=== PATIENT | female | born 1945 | race Caucasian/White ===

== ENCOUNTER 2017-10-28 08:46 | Inpatient (IN) ==
[2017-10-28] MEDS ORDERED: MIDAZOLAM 2 MG/2 ML VIAL ONE (09:10)
[2017-10-28] MEDS ORDERED: LIDOCAINE 1% 20 ML VIAL ONE (09:11)
[2017-10-28] MEDS ORDERED: fentaNYL 100 MCG/2 ML VIAL ONE (09:11)
[2017-10-28 09:12] LABS: Basophils # 0.1 10*3/uL (0.0-0.2); Basophils % 0.3 % (0.0-0.8); Eosinophils % 0.1 % (0.00-10.9); Hematocrit 33.5 VOL% (35.7-47.0); Hemoglobin 12.1 GM/DL (12.0-16.0); Immature Granulocytes % 1.1 %; Immature Granulocytes Absolute 0.22 #; Mean Corpuscular HGB Conc 36.1 GM/DL (32-36); Mean Corpuscular Hemoglobin 31 PG (27-34); Mean Corpuscular Volume 85.5 FL (87-102); Mean Platelet Volume 10.2 FL (9.6-12.0); Monocytes # 0.7 10*3/uL (0.11-0.8); Monocytes % 3.7 % (1.7-12.7); Neutrophils # 17.7 10*3/uL (1.4-7.4); Neutrophils % 89.8 % (38.7-73.9); Platelet Count 213 T/CUMM (130-400); Red Blood Count 3.92 MC/CUMM (3.8-5.5); Red Cell Distribution Width 15.2 % (9.3-17.3); White Blood Count 19.6 T/CUMM (4-12)
[2017-10-28] MEDS ORDERED: ASPIRIN 325 MG TABLET ONE (09:16)
[2017-10-28] MEDS ORDERED: ASPIRIN 325 MG TABLET PO STA (09:26)
[2017-10-28] MEDS ORDERED: LEVOFLOXACIN INJ 500 MG in PREMIX 1 EACH IV STA (09:31)
[2017-10-28 09:34] LABS: Alanine Aminotransferase 15 U/L (13-56); Albumin 3.1 G/DL (3.4-5.0); Alkaline Phosphatase 46 U/L (45-117); Aspartate Amino Transferase 16 U/L (0-37); Blood Urea Nitrogen 22 MG/DL (7-18); Glucose 150 MG/DL (74-106); Osmolality,Calculated 275.1 MOS/KG (273-304); Sodium 135 MMOL/L (136-145); Total Protein 6.9 G/DL (6.4-8.3); Troponin I Only < 0.015 NG/ML (0.00-0.045)
[2017-10-28 09:35] LABS: Apearance,Urine CLEAR (Clear); Bilirubin,Urine Negative (Negative); Blood, Urine Small mg/dL (Negative); Glucose,Urine (UA) Negative (Negative); Ketones,Urine Negative (Negative); Mucus,Urine Occasional /LPF (Occasional); Nitrite,Urine Negative (Negative); Protein,Urine Negative; RBC,Urine <1 /HPF (0-4); Squamous Epithelial Cell,Urine Occasional /HPF (0-10); Urine Color Yellow (Yellow); Urine Specific Gravity 1.012 (1.001-1.035); Urine Urobilinogen < 2.0 EU/DL (0.2-1.0); WBC,Urine 1 /HPF (0-6)
[2017-10-28] MEDS ORDERED: ONDANSETRON 4 MG/2 ML VIAL IV PRN ×2 (09:53→12:58)
[2017-10-28] MEDS ORDERED: GLUCAGON 1 MG VIAL IM PRN (09:53)
[2017-10-28] MEDS ORDERED: ACETAMINOPHEN 325 MG TABLET PO PRN (09:53)
[2017-10-28] MEDS ORDERED: DEXTROSE 50% 25 GM/50 ML VIAL IV PRN (09:53)
[2017-10-28] MEDS: SODIUM CHLORIDE 0.9% 1,000 ML IV SCH (10:00)
[2017-10-28 10:07] LABS: Lactic Acid 3.1 MMOL/L (0.4-2.0)
[2017-10-28] MEDS ORDERED: SODIUM CHLORIDE 0.9% 1,900 ML IV ONE (10:22)
[2017-10-28] MEDS ORDERED: ALBUTEROL/IPRATROPIUM 3 ML NEB RESP TX PRN (12:33)
[2017-10-28] MEDS ORDERED: POTASSIUM CHLORIDE RIDER 10 MEQ in PREMIX 1 EACH IV ONE (12:41)
[2017-10-28] MEDS ORDERED: cefTRIAXone 1,000 MG VIAL IM ONE (12:45)
[2017-10-28] MEDS ORDERED: cefTRIAXone 1,000 MG in SYRINGE 1 EACH IV ONE (13:02)
[2017-10-28] MEDS ORDERED: DOXYLAMINE SUCCINATE 25 MG PO PRN (13:15)
[2017-10-28] MEDS ORDERED: LOPERAMIDE 2 MG CAPSULE PO PRN (13:15)
[2017-10-28] MEDS: INSULIN REGULAR 100 UNIT/ML SUBCUT SCH ×3 (13:17→21:29)
[2017-10-28] MEDS: POTASSIUM CHLORIDE 20 MEQ TABLET PO SCH (13:20)
[2017-10-28] MEDS ORDERED: ENOXAPARIN 30 MG/0.3 ML SYRINGE SUBCUT SCH (21:00)
[2017-10-28] MEDS: CITALOPRAM 20 MG TABLET PO SCH (21:26)
[2017-10-28] MEDS: DOCUSATE SODIUM 100 MG CAPSULE PO SCH (21:29)
[2017-10-29] MEDS: SODIUM CHLORIDE 0.9% 1,000 ML IV SCH ×2 (03:06→12:48)
[2017-10-29 06:28] LABS: Basophils % 0.2 % (0.0-0.8); Eosinophils % 0.1 % (0.00-10.9); Hematocrit 28.2 VOL% (35.7-47.0); Immature Granulocytes % 4.8 %; Immature Granulocytes Absolute 0.79 #; Lymphocytes # 1.1 10*3/uL (1.4-4.0); Lymphocytes % 6.6 % (21.3-54.2); Mean Corpuscular HGB Conc 35.8 GM/DL (32-36); Mean Corpuscular Hemoglobin 31 PG (27-34); Mean Corpuscular Volume 86.2 FL (87-102); Mean Platelet Volume 10.9 FL (9.6-12.0); Monocytes # 0.5 10*3/uL (0.11-0.8); Monocytes % 3.3 % (1.7-12.7); Platelet Count 174 T/CUMM (130-400); Red Blood Count 3.27 MC/CUMM (3.8-5.5); Red Cell Distribution Width 15.3 % (9.3-17.3); White Blood Count 16.4 T/CUMM (4-12)
[2017-10-29 06:51] LABS: Calcium 7.7 MG/DL (8.5-10.1); Hemoglobin 10.1 GM/DL (12.0-16.0); Potassium 2.9 MMOL/L (3.5-5.1)
[2017-10-29 07:08] LABS: Band Neutrophils 9 % (0-10); Lymphocytes 4 % (20-55); Platelet Estimate Normal; Segmented Neutrophils 85 % (50-85); Total Cells Counted 100
[2017-10-29] MEDS: LEVOTHYROXINE 125 MCG TABLET PO SCH (07:11)
[2017-10-29] MEDS: INSULIN REGULAR 100 UNIT/ML SUBCUT SCH ×5 (08:44→20:45)
[2017-10-29] MEDS: POTASSIUM CHLORIDE 20 MEQ TABLET PO SCH (08:46)
[2017-10-29] MEDS: MAGNESIUM CHLORIDE 64 MG TABLET PO SCH (08:46)
[2017-10-29] MEDS: OMEGA 3 ACID ETHYL ESTERS 1 GM CAPSULE PO SCH (08:46)
[2017-10-29] MEDS: GLIMEPIRIDE 2 MG TABLET PO SCH (08:47)
[2017-10-29] MEDS: PANTOPRAZOLE 40 MG TABLET PO SCH (08:47)
[2017-10-29] MEDS: ASPIRIN EC 81 MG TABLET PO SCH (08:47)
[2017-10-29] MEDS: MONTELUKAST 10 MG TABLET PO SCH (08:48)
[2017-10-29] MEDS: TRIAMTERENE/HCTZ 37.5-25 MG TABLET PO SCH (08:59)
[2017-10-29] MEDS ORDERED: VILANTEROL INH SCH (09:00)
[2017-10-29] MEDS ORDERED: amLODIPine 10 MG TABLET PO SCH (09:00)
[2017-10-29] MEDS ORDERED: NICOTINE 14 MG/24 HR PATCH TRANSDERM SCH (09:00)
[2017-10-29] MEDS ORDERED: OLMESARTAN 20 MG TABLET PO SCH (09:00)
[2017-10-29] MEDS ORDERED: [UNRECOGNIZED DRUG - OTHER] INH SCH (09:00)
[2017-10-29] MEDS: DOCUSATE SODIUM 100 MG CAPSULE PO SCH ×2 (09:05→20:45)
[2017-10-29] MEDS: POTASSIUM CHLORIDE RIDER 10 MEQ in PREMIX 1 EACH IV SCH ×2 (09:05→12:52)
[2017-10-29] MEDS: ALBUTEROL/IPRATROPIUM 3 ML NEB RESP TX SCH ×4 (10:49→23:40)
[2017-10-29] MEDS: LEVOFLOXACIN INJ 750 MG in PREMIX 1 EACH IV SCH (12:37)
[2017-10-29] MEDS ORDERED: amLODIPine 5 MG TABLET PO SCH (13:49)
[2017-10-29] MEDS: CLINDAMYCIN INJ 300 MG in PREMIX 1 EACH IV SCH ×2 (15:11→23:04)
[2017-10-29] MEDS: CITALOPRAM 20 MG TABLET PO SCH (20:44)
[2017-10-29] MEDS: ENOXAPARIN 40 MG/0.4 ML SYRINGE SUBCUT SCH (20:45)
[2017-10-30] MEDS: SODIUM CHLORIDE 0.9% 1,000 ML IV SCH ×5 (00:26→23:33)
[2017-10-30] MEDS: ALBUTEROL/IPRATROPIUM 3 ML NEB RESP TX SCH ×4 (03:03→15:53)
[2017-10-30 05:23] LABS: Basophils % 0.2 % (0.0-0.8); Eosinophils # 0.1 10*3/uL (0.0-0.87); Eosinophils % 1.2 % (0.00-10.9); Hemoglobin 9.1 GM/DL (12.0-16.0); Mean Corpuscular Hemoglobin 31 PG (27-34); Mean Platelet Volume 11.1 FL (9.6-12.0); Monocytes # 0.3 10*3/uL (0.11-0.8); Neutrophils # 8.3 10*3/uL (1.4-7.4); Neutrophils % 84.6 % (38.7-73.9); Platelet Count 143 T/CUMM (130-400); Red Blood Count 2.92 MC/CUMM (3.8-5.5); White Blood Count 9.8 T/CUMM (4-12)
[2017-10-30 05:25] LABS: Calcium 7.8 MG/DL (8.5-10.1); Potassium 3.1 MMOL/L (3.5-5.1)
[2017-10-30] MEDS: CLINDAMYCIN INJ 300 MG in PREMIX 1 EACH IV SCH ×3 (06:29→23:21)
[2017-10-30] MEDS: LEVOTHYROXINE 125 MCG TABLET PO SCH (06:30)
[2017-10-30] MEDS ORDERED: MAGNESIUM SULF RIDER 4 GM in PREMIX 1 EACH IV PRN (06:37)
[2017-10-30] MEDS: POTASSIUM CHLORIDE 20 MEQ TABLET PO PRN ×3 (06:59→12:33)
[2017-10-30] MEDS: MAGNESIUM SULF RIDER 2 GM in PREMIX 1 EACH IV PRN (06:59)
[2017-10-30] MEDS: MONTELUKAST 10 MG TABLET PO SCH (08:48)
[2017-10-30] MEDS: OMEGA 3 ACID ETHYL ESTERS 1 GM CAPSULE PO SCH (08:48)
[2017-10-30] MEDS: TRIAMTERENE/HCTZ 37.5-25 MG TABLET PO SCH (08:49)
[2017-10-30] MEDS: PANTOPRAZOLE 40 MG TABLET PO SCH (08:49)
[2017-10-30] MEDS: GLIMEPIRIDE 2 MG TABLET PO SCH ×3 (08:49→21:22)
[2017-10-30] MEDS: ASPIRIN EC 81 MG TABLET PO SCH (08:50)
[2017-10-30] MEDS: DOCUSATE SODIUM 100 MG CAPSULE PO SCH ×2 (08:50→22:14)
[2017-10-30] MEDS: POTASSIUM CHLORIDE 20 MEQ TABLET PO SCH (08:50)
[2017-10-30] MEDS: MAGNESIUM CHLORIDE 64 MG TABLET PO SCH (08:50)
[2017-10-30] MEDS: INSULIN REGULAR 100 UNIT/ML SUBCUT SCH ×4 (08:58→22:14)
[2017-10-30] MEDS: LEVOFLOXACIN INJ 750 MG in PREMIX 1 EACH IV SCH (10:35)
[2017-10-30] MEDS ORDERED: ALBUTEROL 2.5 MG/3 ML NEB RESP TX PRN (15:18)
[2017-10-30] MEDS: LEVALBUTEROL 1.25 MG/3 ML NEB RESP TX PRN ×3 (15:48→23:07)
[2017-10-30] MEDS: CITALOPRAM 20 MG TABLET PO SCH (21:20)
[2017-10-30] MEDS: OLMESARTAN 20 MG TABLET PO SCH (21:24)
[2017-10-30] MEDS: TEMAZEPAM 15 MG CAPSULE PO PRN (21:27)
[2017-10-30] MEDS: ENOXAPARIN 40 MG/0.4 ML SYRINGE SUBCUT SCH (22:15)
[2017-10-31] MEDS: LEVALBUTEROL 1.25 MG/3 ML NEB RESP TX PRN ×4 (02:56→21:12)
[2017-10-31 05:04] LABS: Calcium 8.3 MG/DL (8.5-10.1); Osmolality,Calculated 273.7 MOS/KG (273-304); Potassium 4.1 MMOL/L (3.5-5.1)
[2017-10-31] MEDS: LEVOTHYROXINE 125 MCG TABLET PO SCH (06:15)
[2017-10-31] MEDS: INSULIN REGULAR 100 UNIT/ML SUBCUT SCH ×4 (07:41→22:17)
[2017-10-31] MEDS: CLINDAMYCIN INJ 300 MG in PREMIX 1 EACH IV SCH ×3 (07:42→22:32)
[2017-10-31] MEDS: SODIUM CHLORIDE 0.9% 1,000 ML IV SCH ×5 (07:42→22:50)
[2017-10-31] MEDS: MAGNESIUM CHLORIDE 64 MG TABLET PO SCH (08:42)
[2017-10-31] MEDS: DOCUSATE SODIUM 100 MG CAPSULE PO SCH ×2 (08:42→20:53)
[2017-10-31] MEDS: GLIMEPIRIDE 2 MG TABLET PO SCH ×2 (08:43→20:54)
[2017-10-31] MEDS: MONTELUKAST 10 MG TABLET PO SCH (08:43)
[2017-10-31] MEDS: amLODIPine 2.5 MG TABLET PO SCH (08:43)
[2017-10-31] MEDS: TRIAMTERENE/HCTZ 37.5-25 MG TABLET PO SCH (08:43)
[2017-10-31] MEDS: PANTOPRAZOLE 40 MG TABLET PO SCH (08:43)
[2017-10-31] MEDS: OMEGA 3 ACID ETHYL ESTERS 1 GM CAPSULE PO SCH (08:43)
[2017-10-31] MEDS: MAGNESIUM SULF RIDER 2 GM in PREMIX 1 EACH IV PRN (08:43)
[2017-10-31] MEDS: POTASSIUM CHLORIDE 20 MEQ TABLET PO SCH (08:43)
[2017-10-31] MEDS: ASPIRIN EC 81 MG TABLET PO SCH (08:43)
[2017-10-31] MEDS: LEVOFLOXACIN INJ 750 MG in PREMIX 1 EACH IV SCH (11:14)
[2017-10-31] MEDS: CITALOPRAM 20 MG TABLET PO SCH (20:53)
[2017-10-31] MEDS: OLMESARTAN 20 MG TABLET PO SCH (20:54)
[2017-10-31] MEDS: ENOXAPARIN 40 MG/0.4 ML SYRINGE SUBCUT SCH (20:55)
[2017-10-31] MEDS: TEMAZEPAM 15 MG CAPSULE PO PRN (22:17)
[2017-11-01] MEDS: LEVALBUTEROL 1.25 MG/3 ML NEB RESP TX PRN ×2 (00:54→04:16)
[2017-11-01] MEDS: SODIUM CHLORIDE 0.9% 1,000 ML IV SCH ×2 (03:41→09:00)
[2017-11-01 05:32] LABS: Basophils % 0.7 % (0.0-0.8); Eosinophils # 0.1 10*3/uL (0.0-0.87); Hematocrit 27.1 VOL% (35.7-47.0); Hemoglobin 9.6 GM/DL (12.0-16.0); Immature Granulocytes % 0.9 %; Immature Granulocytes Absolute 0.04 #; Lymphocytes # 1.1 10*3/uL (1.4-4.0); Lymphocytes % 24.1 % (21.3-54.2); Mean Corpuscular HGB Conc 35.4 GM/DL (32-36); Mean Corpuscular Hemoglobin 31 PG (27-34); Mean Corpuscular Volume 87.1 FL (87-102); Mean Platelet Volume 10.6 FL (9.6-12.0); Monocytes # 0.3 10*3/uL (0.11-0.8); Monocytes % 7.1 % (1.7-12.7); Neutrophils # 2.8 10*3/uL (1.4-7.4); Neutrophils % 64.2 % (38.7-73.9); Platelet Count 188 T/CUMM (130-400); Red Blood Count 3.11 MC/CUMM (3.8-5.5); Red Cell Distribution Width 14.9 % (9.3-17.3); White Blood Count 4.4 T/CUMM (4-12)
[2017-11-01 05:50] LABS: Calcium 8.5 MG/DL (8.5-10.1); Osmolality,Calculated 278.4 MOS/KG (273-304); Potassium 3.9 MMOL/L (3.5-5.1)
[2017-11-01] MEDS: CLINDAMYCIN INJ 300 MG in PREMIX 1 EACH IV SCH ×3 (06:02→22:32)
[2017-11-01] MEDS: LEVOTHYROXINE 125 MCG TABLET PO SCH (06:03)
[2017-11-01] MEDS: INSULIN REGULAR 100 UNIT/ML SUBCUT SCH ×4 (09:50→21:25)
[2017-11-01] MEDS: amLODIPine 2.5 MG TABLET PO SCH (09:50)
[2017-11-01] MEDS: MAGNESIUM CHLORIDE 64 MG TABLET PO SCH (09:51)
[2017-11-01] MEDS: PANTOPRAZOLE 40 MG TABLET PO SCH (09:51)
[2017-11-01] MEDS: MONTELUKAST 10 MG TABLET PO SCH (09:51)
[2017-11-01] MEDS: TRIAMTERENE/HCTZ 37.5-25 MG TABLET PO SCH (09:51)
[2017-11-01] MEDS: POTASSIUM CHLORIDE 20 MEQ TABLET PO SCH (09:51)
[2017-11-01] MEDS: ASPIRIN EC 81 MG TABLET PO SCH (09:51)
[2017-11-01] MEDS: OMEGA 3 ACID ETHYL ESTERS 1 GM CAPSULE PO SCH (09:51)
[2017-11-01] MEDS: GLIMEPIRIDE 2 MG TABLET PO SCH (09:51)
[2017-11-01] MEDS: DOCUSATE SODIUM 100 MG CAPSULE PO SCH ×2 (09:51→21:24)
[2017-11-01] MEDS ORDERED: ALBUTEROL 2.5 MG/3 ML NEB RESP TX PRN (10:00)
[2017-11-01] MEDS: LEVOFLOXACIN INJ 750 MG in PREMIX 1 EACH IV SCH (10:02)
[2017-11-01] MEDS: NICOTINE 7 MG/24 HR PATCH TRANSDERM SCH (13:37)
[2017-11-01] MEDS: CITALOPRAM 20 MG TABLET PO SCH (21:22)
[2017-11-01] MEDS: ENOXAPARIN 40 MG/0.4 ML SYRINGE SUBCUT SCH (21:24)
[2017-11-01] MEDS: OLMESARTAN 20 MG TABLET PO SCH (21:25)
[2017-11-01] MEDS: TEMAZEPAM 15 MG CAPSULE PO PRN (21:33)
[2017-11-02] MEDS: CLINDAMYCIN INJ 300 MG in PREMIX 1 EACH IV SCH ×2 (06:14→15:42)
[2017-11-02] MEDS: LEVOTHYROXINE 125 MCG TABLET PO SCH (06:19)
[2017-11-02] MEDS: MAGNESIUM CHLORIDE 64 MG TABLET PO SCH (08:40)
[2017-11-02] MEDS: PANTOPRAZOLE 40 MG TABLET PO SCH (08:40)
[2017-11-02] MEDS: POTASSIUM CHLORIDE 20 MEQ TABLET PO SCH (08:40)
[2017-11-02] MEDS: MONTELUKAST 10 MG TABLET PO SCH (08:40)
[2017-11-02] MEDS: ASPIRIN EC 81 MG TABLET PO SCH (08:41)
[2017-11-02] MEDS: amLODIPine 2.5 MG TABLET PO SCH (08:41)
[2017-11-02] MEDS: TRIAMTERENE/HCTZ 37.5-25 MG TABLET PO SCH (08:41)
[2017-11-02] MEDS: NICOTINE 7 MG/24 HR PATCH TRANSDERM SCH (08:41)
[2017-11-02] MEDS: GLIMEPIRIDE 2 MG TABLET PO SCH (08:41)
[2017-11-02] MEDS: OMEGA 3 ACID ETHYL ESTERS 1 GM CAPSULE PO SCH (08:41)
[2017-11-02] MEDS: INSULIN REGULAR 100 UNIT/ML SUBCUT SCH ×4 (08:42→20:59)
[2017-11-02] MEDS: DOCUSATE SODIUM 100 MG CAPSULE PO SCH ×2 (08:42→21:05)
[2017-11-02] MEDS: LEVOFLOXACIN INJ 750 MG in PREMIX 1 EACH IV SCH (13:09)
[2017-11-02] MEDS: SODIUM CHLORIDE 0.9% 1,000 ML IV SCH (13:13)
[2017-11-02] MEDS: ENOXAPARIN 40 MG/0.4 ML SYRINGE SUBCUT SCH (21:05)
[2017-11-02] MEDS: CITALOPRAM 20 MG TABLET PO SCH (21:05)
[2017-11-02] MEDS: TEMAZEPAM 15 MG CAPSULE PO PRN (21:08)
[2017-11-02] MEDS: OLMESARTAN 20 MG TABLET PO SCH (21:08)
[2017-11-03] MEDS: CLINDAMYCIN INJ 300 MG in PREMIX 1 EACH IV SCH ×3 (00:21→14:13)
[2017-11-03] MEDS: LEVOTHYROXINE 125 MCG TABLET PO SCH (06:59)
[2017-11-03] MEDS ORDERED: METOPROLOL TARTRATE 5 MG/5 ML VIAL IV ONE ×2 (07:04→07:12)
[2017-11-03] MEDS: SODIUM CHLORIDE 0.9% 1,000 ML IV SCH (08:25)
[2017-11-03] MEDS: PANTOPRAZOLE 40 MG TABLET PO SCH (08:27)
[2017-11-03] MEDS: MONTELUKAST 10 MG TABLET PO SCH (08:27)
[2017-11-03] MEDS: MAGNESIUM CHLORIDE 64 MG TABLET PO SCH (08:27)
[2017-11-03] MEDS: OMEGA 3 ACID ETHYL ESTERS 1 GM CAPSULE PO SCH (08:27)
[2017-11-03] MEDS: GLIMEPIRIDE 2 MG TABLET PO SCH (08:28)
[2017-11-03] MEDS: DOCUSATE SODIUM 100 MG CAPSULE PO SCH ×2 (08:28→22:21)
[2017-11-03] MEDS: ASPIRIN EC 81 MG TABLET PO SCH (08:28)
[2017-11-03] MEDS: INSULIN REGULAR 100 UNIT/ML SUBCUT SCH ×4 (08:29→22:21)
[2017-11-03] MEDS: amLODIPine 2.5 MG TABLET PO SCH (08:33)
[2017-11-03] MEDS: NICOTINE 7 MG/24 HR PATCH TRANSDERM SCH (08:37)
[2017-11-03] MEDS: POTASSIUM CHLORIDE 20 MEQ TABLET PO SCH (09:23)
[2017-11-03] MEDS: TRIAMTERENE/HCTZ 37.5-25 MG TABLET PO SCH (09:23)
[2017-11-03] MEDS: LEVOFLOXACIN INJ 750 MG in PREMIX 1 EACH IV SCH (10:31)
[2017-11-03] MEDS: CITALOPRAM 20 MG TABLET PO SCH (22:11)
[2017-11-03] MEDS: OLMESARTAN 20 MG TABLET PO SCH (22:11)
[2017-11-03] MEDS: ENOXAPARIN 40 MG/0.4 ML SYRINGE SUBCUT SCH (22:11)
[2017-11-03] MEDS: TEMAZEPAM 15 MG CAPSULE PO PRN (22:15)
[2017-11-04] MEDS: CLINDAMYCIN INJ 300 MG in PREMIX 1 EACH IV SCH ×3 (00:40→15:36)
[2017-11-04 05:06] LABS: Basophils % 0.7 % (0.0-0.8); Eosinophils # 0.2 10*3/uL (0.0-0.87); Eosinophils % 4.9 % (0.00-10.9); Hematocrit 28.5 VOL% (35.7-47.0); Hemoglobin 9.8 GM/DL (12.0-16.0); Immature Granulocytes % 1.7 %; Immature Granulocytes Absolute 0.07 #; Lymphocytes # 1.1 10*3/uL (1.4-4.0); Lymphocytes % 27.7 % (21.3-54.2); Mean Corpuscular HGB Conc 34.4 GM/DL (32-36); Mean Corpuscular Hemoglobin 30 PG (27-34); Mean Platelet Volume 10.2 FL (9.6-12.0); Monocytes # 0.4 10*3/uL (0.11-0.8); Monocytes % 10.5 % (1.7-12.7); Neutrophils # 2.2 10*3/uL (1.4-7.4); Neutrophils % 54.5 % (38.7-73.9); Platelet Count 234 T/CUMM (130-400); Red Blood Count 3.24 MC/CUMM (3.8-5.5); Red Cell Distribution Width 14.5 % (9.3-17.3); White Blood Count 4.1 T/CUMM (4-12)
[2017-11-04 05:45] LABS: Calcium 8.8 MG/DL (8.5-10.1); Osmolality,Calculated 273.8 MOS/KG (273-304); Potassium 3.8 MMOL/L (3.5-5.1)
[2017-11-04] MEDS: LEVOTHYROXINE 125 MCG TABLET PO SCH (06:27)
[2017-11-04] MEDS: SODIUM CHLORIDE 0.9% 1,000 ML IV SCH (08:20)
[2017-11-04] MEDS: INSULIN REGULAR 100 UNIT/ML SUBCUT SCH ×2 (08:27→12:26)
[2017-11-04] MEDS: PANTOPRAZOLE 40 MG TABLET PO SCH (09:45)
[2017-11-04] MEDS: MAGNESIUM CHLORIDE 64 MG TABLET PO SCH (09:45)
[2017-11-04] MEDS: DOCUSATE SODIUM 100 MG CAPSULE PO SCH (09:45)
[2017-11-04] MEDS: MONTELUKAST 10 MG TABLET PO SCH (09:45)
[2017-11-04] MEDS: GLIMEPIRIDE 2 MG TABLET PO SCH (09:45)
[2017-11-04] MEDS: amLODIPine 2.5 MG TABLET PO SCH (09:45)
[2017-11-04] MEDS: OMEGA 3 ACID ETHYL ESTERS 1 GM CAPSULE PO SCH (09:45)
[2017-11-04] MEDS: ASPIRIN EC 81 MG TABLET PO SCH (09:45)
[2017-11-04] MEDS: TRIAMTERENE/HCTZ 37.5-25 MG TABLET PO SCH (09:46)
[2017-11-04] MEDS: POTASSIUM CHLORIDE 20 MEQ TABLET PO SCH (09:46)
[2017-11-04] MEDS: NICOTINE 7 MG/24 HR PATCH TRANSDERM SCH (09:49)
[2017-11-04 12:23] VITALS: BP 132/56
[2017-11-04] MEDS: LEVOFLOXACIN INJ 750 MG in PREMIX 1 EACH IV SCH (12:25)
== END 2017-11-04 15:05 | disposition home or self-care (01) | DRG 193 ==
LOC: N.ED 08:46 → N.2W 09:52 → N.TELEN 12:09
PROVIDERS: ADMIT Family Medicine; ATTEND Family Medicine